=== PATIENT | male | born 1975 | race Caucasian/White ===

== ENCOUNTER 2017-03-15 16:27 | Observation (INO) | payer BC ==
[~2017-03-15] VITALS: Ht 172.7 cm; Wt 103.2 kg
--- NOTE | ~2017-03-15 | ER ---
PATIENT'S NAME: ALAINA ERWIN [facility] AGE: 41 Y [address] ROOM: [facility] [place], [place] [place], [place] [address] LOCATION: GPCU ADMIT DATE: 03/15/2017 ER/Outpatient Report DISCHARGE DATE: FAMILY PHYSICIAN: , NO ATTENDING PHYSICIAN: Deo Hartman Admission date and time documented in medical record. I saw the patient at 1640 hours. CHIEF COMPLAINT: Chest pain. HISTORY OF PRESENT ILLNESS: This patient is a 41-year-old male, who around noon today developed some right- sided anterior chest pain that was nonradiating. Throughout the day, it kind of moved to the mid chest then to the left anterior chest area and has pretty much stayed in the left anterior chest area. It again is not radiating to the shoulder, arm, back, neck, or jaw. It is stabbing in nature. It was about a 4 to 5/10 in severity. He had some shortness of breath and lightheadedness with this. No syncope. No fall or trauma. No headache, eyes, ears, nose, throat, neck, or spine pain. No recent coughs, colds, flus, fever, chills, or sweats. Denied any abdominal pain, nausea, vomiting. No diarrhea or urinary frequency, urgency, or dysuria. No joint or muscle swelling, redness, or pain. No skin eruptions or rash. No history of neuro changes, psych issues, endocrine problems. The patient does have a family history of heart disease and he does have hypertension. HOME MEDICATIONS: See attached medication sheet. ALLERGIES: NONE. SOCIAL HISTORY: Nonsmoker, nondrinker. SIGNIFICANT PAST MEDICAL HISTORY: Hypertension. FAMILY HISTORY: Heart disease. OPERATIONS: None. PATIENT'S NAME: ALAINA ERWIN [facility] AGE: 41 Y [address] ROOM: [address] [place] [id number] LOCATION: GPCU ADMIT DATE: 03/15/2017 ER/Outpatient Report DISCHARGE DATE: FAMILY PHYSICIAN: PHYSICIAN, NO ATTENDING PHYSICIAN: Deo Hartman REVIEW OF SYSTEMS: All systems reviewed by me are negative with the exception of those discussed in the history of present illness. PHYSICAL EXAMINATION: VITAL SIGNS: Temperature 98.8, Pulse 93, respirations 20, blood pressure 177/94, O2 saturation on room air is 98%. Pito coma scale was 15. HEAD: Normocephalic. EYES: Extraocular muscles intact. PERRL. EARS, NOSE, THROAT: Clear. Mucous membranes moist. Teeth, jaw intact. NECK: No nuchal rigidity. No thyromegaly or cervical adenopathy. No tenderness. SPINE: Nontender. No deformity. LUNGS: Clear. No rales, rhonchi, or wheezes. HEART: Regular. Pulses are palpable. No chest wall or ribcage pain to palpation. ABDOMEN: Soft, nondistended, nontender. Good bowel tones. No organomegaly or abnormal mass palpable. No CVA tenderness. No true guarding or rigidity. No rebound tenderness. EXTREMITIES: No peripheral edema. No cyanosis or deformity. NEURO: Cranial nerves intact. No lateralizing sign. Patient is awake, cooperative. Motor and sensory intact. VASCULAR: Intact. SKIN: Clear. No skin eruptions or rash. IMAGING DATA: Chest x-ray showed no acute infiltrate. We will review x-ray with the radiologist. EKG showed sinus rhythm. No acute ST elevation, ischemic change, or arrhythmia. LABORATORY DATA: White count 6600, 63 segs, 28 lymphs, 8 monos, 1 eo, 1 baso. Hemoglobin is 15.5, hematocrit 44.2, and platelet count is 170,000. PTT was 26. Pro-time is 10.5, and INR 1.0. CMS was normal. Magnesium was 2.2. CPK was 100. CK-MB and troponin were both normal. Awaiting to our EKG and cardiac enzyme results. Also awaiting D-dimer results. Did give the patient 4 baby aspirin orally in the emergency department as well as 2 mg of morphine IV for pain. IMPRESSION: 1. Chest pain, etiology uncertain. 2. History of hypertension. 3. Family history of heart. PLAN: Transferred the patient's care to Dr. Waller. Shift change. I asked Dr. Waller PATIENT'S NAME: ALAINA ERWIN [facility] AGE: 41 Y [address] ROOM: [place] [address] LOCATION: GPCU ADMIT DATE: 03/15/2017 ER/Outpatient Report DISCHARGE DATE: FAMILY PHYSICIAN: PHYSICIAN, NO ATTENDING PHYSICIAN: Deo Hartman to follow up with the second set of cardiac enzymes, second EKG, and D-dimer. Results; final diagnosis and treatment plan. MD GUILLERMO URIAS/modl /[id number] d: 03/16/17 0044 t: 03/26/17 1812, OUTPATIENT REPORT
--- NOTE | ~2017-03-15 | ER ---
PATIENT'S NAME: ALAINA ERWIN [facility] AGE: 41 Y [address] ROOM: [place] [address] LOCATION: GPCU ADMIT DATE: 03/15/2017 ER/Outpatient Report DISCHARGE DATE: FAMILY PHYSICIAN: PHYSICIAN, NO ATTENDING PHYSICIAN: Deo Hartman ADDENDUM: Time of Arrival: Initially 1630 hours. My evaluation at 1755 hours. This an addendum to Dr. Garza' dictation. Please see his previous dictation as well. CHIEF COMPLAINT: Chest pain. HISTORY OF PRESENT ILLNESS: The patient is seen and evaluated by myself at shift change at 1755 hours. He reports he was at work today about noon when he developed some right-sided chest pain, it moved over to his left, it is sharp in nature. He had some associated shortness of breath with this. He reports some lightheadedness and some dizziness. He reports some pain at my evaluation, 3/10 in severity. It is felt like he was going to pass out. He does report having history of similar symptoms about a year ago. He reports he has not been taking his blood pressure medications for several months. Denies any fevers or chills. Does have some nausea. No vomiting, no diarrhea or constipation. Does have an off and on cough. PAST MEDICAL HISTORY: Hypertension. PAST SURGICAL HISTORY: None. FAMILY HISTORY: Mother with heart attack at age 55. SOCIAL HISTORY: The patient works at [employer]. Denies any tobacco, alcohol, or illicit drug use. ALLERGIES: NO KNOWN DRUG ALLERGIES. MEDICATIONS: PATIENT'S NAME: ALAINA ERWIN [facility] AGE: 41 Y [address] ROOM: [address] [address] LOCATION: GPCU ADMIT DATE: 03/15/2017 ER/Outpatient Report DISCHARGE DATE: FAMILY PHYSICIAN: PHYSICIAN, NO ATTENDING PHYSICIAN: Deo Hartman Losartan, he has not taken that for many months. PRIMARY CARE DOCTOR: [facility]. REVIEW OF SYSTEMS: All systems are reviewed by myself and are negative with the exception of those discussed in HPI and past medical history. PHYSICAL EXAMINATION: VITAL SIGNS: Weight 104 kg, blood pressure 177/96, pulse 93, respiratory rate 20, temperature 98.8, oxygen saturation 98% on room air. GENERAL: The patient is a 41-year-old male who appears his stated age, in no acute distress. HEENT: Normocephalic, atraumatic. Pupils are equal, round, and reactive to light. NECK: Supple. There is no nuchal rigidity. CARDIOVASCULAR: Regular rate and rhythm. No murmurs, rubs, or gallops. LUNGS: Clear to auscultation bilaterally. No wheezes, rales, or rhonchi. ABDOMEN: Soft, nontender, and nondistended. No rebound, rigidity, or guarding. MUSCULOSKELETAL: The patient moves all 4 extremities. SKIN: Warm and dry. There is no pretibial edema noted. LABORATORY DATA AND X-RAYS: Labs and x-rays are reviewed. EKG was reviewed at 1805 hours by myself. It does shows sinus rhythm at a rate of 81, left-axis deviation, normal interval, no ST elevation, ST depression, T-wave inversions. D-dimer is normal. CBC is normal. Coags are normal. CMP is normal. LFTs are normal. Cardiac enzymes are normal. A 2-hour cardiac enzymes are normal as well. A repeat 2-hour cardiac EKG is interpreted by myself at 1846 hours, that shows sinus rhythm at a rate of 66, left-axis deviation, normal interval, no ST elevation, ST depression, T-wave inversions. IMPRESSION: 1. Hypertensive emergency. 2. Chest pain, rule out acute coronary syndrome. 3. Initial visit. EMERGENCY DEPARTMENT COURSE: The patient was brought back to the examination room. He is initially seen and evaluated by Dr. Garza, please see his dictation. Transfer of care is made to myself at shift change. I did see and evaluate the patient myself. The patient's 2-hour enzymes and EKG were normal; however, upon re-evaluation, the patient's blood pressure was 211/115. The patient developed active chest PATIENT'S NAME: ALAINA ERWIN Ernesto [facility] AGE: 41 Y [address] ROOM: [address] [place], [place] [address] LOCATION: GPCU ADMIT DATE: 03/15/2017 ER/Outpatient Report DISCHARGE DATE: FAMILY PHYSICIAN: PHYSICIAN, NO ATTENDING PHYSICIAN: Goldfish,Deo L pain at that time. He also became diaphoretic at that time. There are no significant changes on the 2-hour EKG. The patient was given 10 mg of labetalol IV. He is also given 1 nitroglycerin, this did result in significant improvement in the patient's pain and diaphoresis. With the changes in the patient's status, I have recommended observation for further evaluation, treatment, and management. I have contacted Dr. Hartman with the [facility]. He does agree to accept the patient for further evaluation, treatment, and management. I have discussed this with the patient and his fiancee who is at bedside. They are agreeable and without further questions. DISPOSITION: The patient is admitted under the care Dr. Hartman in stable condition. DO DAYNA FINNEY/modl /[id number] d: 03/16/170 t: 03/16/17 1931, OUTPATIENT REPORT
--- NOTE | ~2017-03-15 | ESTC ---
Cardiac Perfusion Imaging Demographics Patient Name YAIMA Orozco Gender Male Patient Number [id number] Race Visit Number [id number] Ethnicity Corporate ID Room Number G6333 Accession Number [id number] Height Date of 1975 Weight Age 41 year(s) BSA Referring Physician Miky Powell BMI Interpreting Marilyn Hernández Date of study 03/16/2017 Physician MD Supervising MD/MARGARITAP Miky Cabrera APRN NM Technologist Cynthia Faria Ordering Physician Stress r and d lab technician Stress ECG Reading Miky Cabrera APRN Nurse Johan Casillas Physician RN Propp Becky MCKENNAweatherstrip machine operator Procedure Type: Nuclear Stress Test:Exercise, Cardiolite Stress Test Procedure Start time: 03/16/2017 09:00 Indications: Chest pain and Dyspnea. Risk Factors The patient risk factors include:former tobacco use, hypertension and diabetes mellitus. Conclusions Summary Perfusion Images: The overall quality of the study is good. Left ventricular cavity is noted to be normal on the stress and normal on the rest images. There is no evidence of abnormal lung activity. The right ventricle is not visualized an cannot be assessed. Impression ECG portion of exercise stress test is clinically negative for ischemia by diagnostic criteria. Patient exercised for 10:30 through 4 stages of SAIRA protocol and achieved 11.8 METS. Myocardial perfusion imaging is normal. Overall left ventricular systolic function was normal without regional wall motion abnormalities. Calculated LVEF is 59% and TID ratio is 0.95. There are no previous studies for comparison. Stress Protocols Resting ECG Normal sinus rhythm. Pre-stress physical exam: Patient assessed by Elaine CROWDER prior to testing. Peak HR:155 bpm HR response: Appropriate Peak BP:210/90 mmHg BP response: Appropriate Predicted HR: 178 bpm HR/BP product:66374 % of predicted HR: 87 ECG Findings No ECG changes suggestive of ischemia. Arrhythmias No rhythm abnormality. Symptoms Shortness of breath. Headache. Complications Procedure complication: None. Stress Interpretation Patient walked for 10:30 through 4 stages of SAIRA protocol. Appropriate hemodynamic response to exercise. No significant ST-T wave changes with exercise. EKG portion is negative for ischemia by diagnostic criteria. The Zavala Treadmill score was 10.5 .This corresponds to a low risk stress test. Will correlate with nuclear images. Imaging Results Applied corrections - Motion correction applied High risk findings Summed scores - Summed stress score: 1 - Summed rest score: 2 - Summed difference score: -1 Stress ejection Ejection fraction:59 % EDV :136 ml ESV :56 ml Stroke volume :80 ml LV mass :167 gr Imaging Protocols Rest Stress Isotope:Tc99m Sestamibi IV Isotope: Tc99m Sestamibi IV Isotope dose:15.1 mCi Isotope dose:46 mCi Date:03/16/2017 08:47 Date:03/16/2017 10:25 Technique: SPECT Technique: Gated Supine SPECT Supine IV remains in place after procedure. Scan Time:45-60 minutes post Scan Time:45-60 minutes post injection injection Medical History Admission Data Admission date: 03/15/2017 Admission Time: 20:54 Hospital Status: Inpatient. Signatures dtt: LUIS MIN dtd: 03/16/17 0900 Physician Self Edit
--- NOTE | ~2017-03-15 | ECHO ---
Transthoracic Echocardiography Report (TTE) Demographics Patient Name ALAINA ERWIN Date of Study 03/16/2017 Patient Number [id number] Visit Number [id number] Date of 1975 Room Number G6333 Accession Number [id number] Gender Male Age 41 year(s) Referring Miky Powell Nitric Acid Plant Operator René Pinto RDCS, Physician RVT Physician Interpreting Marilyn Hernández Enrolled Agent Physician MD Supervising Ordering Physician Miky Powell APRN MD/MLP Nurse Stress Store Director Conclusions Contractility Score Summary Normal Left Ventricular contractility was noted. Summary Normal LV/RV size and systolic function.The estimated left ventricular ejection fraction is 60%. The left atrium is mildly dilated. No significant valvular abnormalities. There is mild pulmonary hypertension. The pulmonary pressure (RVSP) is 43.19 mmHg. Procedure Type of Study TTE procedure:2D Echocardiogram. Procedure Date Date: 03/16/2017 Start: 01:50 PM Study Location: Inpatient Portable Technical Quality: Adequate visualization Indications:Chest pain. Appropriate Use Criteria: 9 Patient Status: Routine HR: 70 bpm BP: 154/85 mmHg M-Mode/2D Measurements LV Diastolic Dimension: 5.32 cm LV Systolic Dimension: 3.39 cm LV Septum Diastolic: 0.72 cm LV PW Diastolic: 0.84 cm AO Root Dimension: 3.4 cm Cardiac Output: 6.49 l/min AV Cusp Separation: 2.4 cm RV Diastolic Dimension: 3.57 cm LA volume: 83 ml LVOT: 2.2 cm RV Base: 3.1 cm LVOT VTI: 24.4 cm RV Mid: 2.23 cm LV Stroke volume: 92.71 ml Doppler Measurements AV Peak Velocity: 1.62 m/s MV Peak E-Wave: 0.94 m/s AV Peak Gradient: 10.5 mmHg MV Peak A-Wave: 0.69 m/s AV Mean Gradient: 7 mmHg MV E/A Ratio: 1.36 LVOT Peak Velocity: 1.51 m/s MV P1/2t: 50 msec TR Gradient:38.19 mmHg PV Peak Velocity: 1.32 m/s Estimated RAP:5 mmHg PV Peak Gradient: 6.97 mmHg Estimated RVSP: 43 mmHg Estimated PASP: 43.19 mmHg E' Septal Velocity: 0.08 m/s A' Septal Velocity: 0.11 m/s E' Lateral Velocity: 0.16 m/s A' Lateral Velocity: 0.11 m/s Findings Left Ventricle Normal left ventricle size and function. Diastolic assessment reveals normal relaxation. Right Ventricle Normal right ventricle structure and function. Left Atrium The left atrium is mildly dilated. Right Atrium The right atrium is normal in size. IVC measures 1.84 cm with inspiratory collapse. Mitral Valve Normal mitral valve structure and function. Aortic Valve Normal aortic valve structure and function. Tricuspid Valve Mild tricuspid regurgitation by color Doppler. There is mild pulmonary hypertension. The pulmonary pressure (RVSP) is 43.19 mmHg. Pulmonic Valve Trivial pulmonic valve regurgitation by color Doppler. Pericardial Effusion No evidence of pericardial effusion. Miscellaneous Visualized portions of the aortic root and ascending aorta appear normal in size. Pleural Effusion No evidence of pleural effusion. Contractility Score LV regional wall motion:(0-Non visualized 1-Normal 2-Hypokinesis 3-Akinesis 4-Dyskinesis 5-Aneurysm) Signature dtt: LUIS MIN dtd: 03/16/17 1910 Physician Self Edit
--- NOTE | ~2017-03-15 | CON ---
PATIENT'S NAME: ALAINA ERWIN [facility] AGE: 41 Y [address] ROOM: [place] [address] LOCATION: GPCU ADMIT DATE: 03/15/2017 Consultation DISCHARGE DATE: 03/16/2017 FAMILY PHYSICIAN: PHYSICIAN, NO ATTENDING PHYSICIAN: Deo Hartman DATE OF CONSULTATION: 03/16/2017 REFERRING PHYSICIAN: Tere Soto MD CARDIOLOGY CONSULTATION REASON FOR CARDIOLOGY CONSULTATION: Chest pain and hypertension. HISTORY OF PRESENT ILLNESS: This is a 41-year-old male with a history of medication noncompliance for hypertension. He developed chest pain, shortness of breath, and presyncope while at work yesterday. He states the pain started on the right side of his chest and moved to the left upper chest as well as to his upper arm. He describes the pain as sharp. He denies any nausea, vomiting, or palpitations. At the time of this consult, he is currently pain free. When asked about relieving factors of his chest pain, he is unaware of any and states he awoke sometime over the evening without pain. PAST MEDICAL HISTORY: 1. Hypertension, poorly controlled. 2. History of migraines. 3. History of kidney stones. 4. GERD. PAST SURGICAL HISTORY: No noted surgical history. FAMILY HISTORY: The patient's mother was a diabetic and had 2 separate myocardial infarctions. He is unaware of any medical history from his father. There is noted heart disease and diabetes on his mother side of the family. SOCIAL HISTORY: The patient is a former cigarette smoker. He states he only smoked for 1 year. He denies alcohol or illicit drug use. CURRENT MEDICATIONS: 1. Nitroglycerin IV as needed for chest pain. 2. Labetalol IV for hypertension. PATIENT'S NAME: ALAINA ERWIN [facility] AGE: 41 Y [address] ROOM: [place] [address] LOCATION: GPCU ADMIT DATE: 03/15/2017 Consultation DISCHARGE DATE: 03/16/2017 FAMILY PHYSICIAN: PHYSICIAN, NO ATTENDING PHYSICIAN: Deo Hartman MEDICATION ALLERGIES: No known medication allergies. REVIEW OF SYSTEMS: Pertinent positive review of systems listed in the HPI. All other review of systems evaluated and negative. LABORATORY DATA AND IMAGING STUDIES: Diagnostics: CMS evaluation shows a sodium of 139, potassium 4.0, BUN of 14, creatinine 1.0, glucose of 91, and a magnesium of 2.2. He has a D-dimer level of 0.19. CBC evaluation shows a white blood cell count of 6.6, hemoglobin of 15.5, hematocrit 44.2, and platelets of 170,000. Cardiac enzyme trend shows a CPK of 100, then 90, then 76, then 69; CK-MB of 0.8, then 0.7, then less than 0.5, and finally 0.7. He has also has troponin I of less than 0.04 x4 values. PHYSICAL EXAMINATION: VITAL SIGNS: Temperature 98.4, pulse 71, respirations 16, blood pressure 137/81, and O2 saturation 95% on room air. The patient weighs 103.2 kg. SKIN: Cornelius, warm, and dry. EYES: Clear. No xanthelasmas. ENT: Oral mucosa is pink and moist. No jugular venous distention or carotid bruits. CHEST: Respirations are even and unlabored. LUNGS: Clear to auscultation. HEART: Regular rate and rhythm. Normal S1 and S2. No murmurs, rubs, or gallops. ABDOMEN: Soft and nontender. MUSCULOSKELETAL: Gait is normal. EXTREMITIES: Peripheral pulses palpable. No clubbing, cyanosis, or edema. PSYCHIATRIC: Alert and oriented. Mood and affect are appropriate. IMPRESSION AND PLAN: Per Dr. Betty Sanders: 1. Chest pain. 2. Shortness of breath. 3. Uncontrolled hypertension. 4. History of medication noncompliance. The patient has underwent cardiac stress testing which showed normal myocardial perfusion imaging. He had a calculated left ventricular ejection fraction of 59%. The patient's pain is most likely from his uncontrolled hypertension. We will start him on Cozaar 50 mg p.o. daily. We will also evaluate an echocardiogram to fully evaluate his ejection fraction as well as look wall motion or valvar abnormalities. Once again, we recommend aggressive management of his blood pressure with close followup as an outpatient. PATIENT'S NAME: ALAINA ERWIN [facility] AGE: 41 Y [address] ROOM: [address] [address] LOCATION: GPCU ADMIT DATE: 03/15/2017 Consultation DISCHARGE DATE: 03/16/2017 FAMILY PHYSICIAN: , NAVA ATTENDING PHYSICIAN: Deo Hartman Thank you Dr. Hartman for this consult. Thank you for allowing [facility] to interact in the care of this patient. VLAD FRANKEL APRN FOR MD ANNIA BARAJAS/daina /[id number] d: 03/16/17 1924 t: 03/18/17 0940, CONSULTATION REPORT
--- NOTE | ~2017-03-15 | HP ---
PATIENT'S NAME: ALAINA ERWIN [facility] AGE: 41 Y [address] ROOM: [place] [address] LOCATION: GPCU ADMIT DATE: 03/15/2017 History & Physical DISCHARGE DATE: FAMILY PHYSICIAN: PHYSICIAN, NO ATTENDING PHYSICIAN: Deo Hartman DATE OF SERVICE: CHIEF COMPLAINT: Chest pain. HISTORY OF PRESENT ILLNESS: The patient is a 41-year-old male with known history of hypertension, who presented with chest pain to the Emergency Room today. The patient was given nitroglycerin and Lopressor and was found to still have an elevated blood pressure in the 200s. The patient continues to have chest pain and was admitted. The patient denies any shortness of breath, fevers, chills, nausea, vomiting, abdominal pain, or headaches. PAST MEDICAL HISTORY: Hypertension. PAST SURGICAL HISTORY: None. ALLERGIES: NO KNOWN MEDICAL ALLERGIES. CURRENT MEDICATIONS: The patient was prescribed losartan, but has not taken in months. FAMILY HISTORY: Significant for mother with history of cardiovascular disease and ID. SOCIAL HISTORY: The patient smoked only for about a year and quit in 2008. Denies any illicit drug use. REVIEW OF SYSTEMS: A complete review of systems is obtained, pertinent positives and negatives as mentioned in the HPI. OBJECTIVE: VITAL SIGNS: Temperature 98.8, pulse 93, respirations 20, blood pressure 177/96. PATIENT'S NAME: ALAINA ERWIN [facility] AGE: 41 Y [address] ROOM: [place] [address] LOCATION: GPCU ADMIT DATE: 03/15/2017 History & Physical DISCHARGE DATE: FAMILY PHYSICIAN: PHYSICIAN, NO ATTENDING PHYSICIAN: Deo Hartman GENERAL: The patient is alert and oriented. Appears in no acute distress. HEENT: Head: Normocephalic, atraumatic. Eyes: Conjunctivae clear. No scleral icterus. Mouth: Oropharynx grossly moist and pink. No lesions or exudates. NECK: Supple. No lymphadenopathy. NEUROLOGIC: Cranial nerves 2 through 12 grossly intact. HEART: Regular rate rhythm. No rubs, murmurs, or gallops. LUNGS: Clear to auscultation bilaterally. ABDOMEN: Bowel sounds present. Nontender. EXTREMITIES: No cyanosis, clubbing, or edema. LYMPHATICS: No lymphadenopathy. LABORATORY DATA: CBC, CMP, and cardiac enzymes were within normal limits. Chest x-ray was normal. ASSESSMENT: 1. Chest pain. 2. Hypertensive emergency. 3. Obesity. PLAN: At this time, we will admit to [facility] and have Cardiology followup. We will place him on nitroglycerin drip to control his blood pressure and also his chest pain. We will make him n.p.o. after midnight and have him stress test tomorrow. We will trend out his enzymes and also discuss starting blood pressure medications in the morning. MD SPIKE VITALE/daina /[id number] D: [id number] T: [id number] HISTORY & PHYSICAL
[2017-03-15 16:51] LABS: BASOPHIL % 0.6 %; EOSINOPHIL # 0.1 K/uL (0.0-0.5); EOSINOPHIL % 0.8 %; HEMATOCRIT 44.2 % (37.0-53.0); HEMOGLOBIN 15.5 g/dL (12.0-17.0); IMMATURE GRANULOCYTE # 0.1 K/uL (0.0-0.3); IMMATURE GRANULOCYTE % 0.9 %; LYMPHOCYTE # 1.8 K/uL (0.8-4.0); LYMPHOCYTE % 27.5 %; MCH 29.8 pg (27.0-34.0); MCHC 35.1 gm/dL (32.0-36.5); MONOCYTE # 0.5 K/uL (0.0-1.0); MONOCYTE % 7.6 %; MPV 11.2 fl (9.4-12.4); NEUTROPHIL # (ANC) 4.2 K/uL (1.4-9.0); NEUTROPHIL % 62.6 %; NRBC % 0 /100WBC (0-0.00); PLATELET COUNT 170 K/uL (150-450); RDW-CV 12.7 % (11.9-14.6); WBC 6.6 K/uL (4.0-11.0)
[2017-03-15 17:01] LABS: PROTIME 10.5 SECONDS (9.8-11.4); PTT 26 SECONDS (25-32)
[2017-03-15 17:11] LABS: ALBUMIN 3.9 gm/dL (3.5-5.0); ALK PHOS 72 IU/L (33-138); ALT 48 IU/L (12-78); AST 28 IU/L (10-40); BLOOD UREA NITROGEN 14 mg/dL (6-24); CALCIUM 8.7 mg/dL (8.5-10.5); CHLORIDE 106 mMol/L (96-110); CO2 22 mMol/L (22-32); CPK 100 IU/L (35-332); ESTIMATED GFR (MDRD EQUATION) > 60; MAGNESIUM 2.2 mg/dL (1.8-2.6); SODIUM 139 mMol/L (135-145); TOTAL BILIRUBIN 0.6 mg/dL (0.0-1.5); TOTAL PROTEIN 7.4 g/dL (6.0-8.4)
[2017-03-15 19:01] LABS: CPK 90 IU/L (35-332)
[2017-03-15] MEDS ORDERED: COZAAR100 MG PO (22:15)
--- NOTE | 2017-03-15 23:02 | NUR ---
Patient has had increase dizziness then chest pain and SOB started at 11am. Came into the ER after work. Cardio work up so far everything negative. BP on arrival 200's, syptomatic nausea, sweats, SOB. Recieved labetalol IV and SL nirto, morhpine, and ASA. Patient Hx HTN, heartburn, nocturia, kidney stones. Family HX of heart disease. No allergies. On arrival to floor VSS BP 155/87. Patient still slightly dizzy and fatigued. No other complains. IV to Rt wrist saline locked. Lungs clear. Bowel sounds present last BM 03/15/17. Patient hasn't been taking his losartan for months. Dr. Hartman here to see patient.
[2017-03-16 01:26] LABS: CPK 76 IU/L (35-332)
--- NOTE | 2017-03-16 04:57 | NUR ---
Patient A/Ox3. VSS on RA. No complaints of pain. Lungs clear. Bowel sounds present. Up standby assist. NPO for possible stress test this am.
[2017-03-16 06:49] LABS: CPK 69 IU/L (35-332)
--- NOTE | 2017-03-16 12:00 | NUR ---
I spoke with nursing and md and they deny any post discharge needs.
[2017-03-16] MEDS ORDERED: HYDRODIURIL25 MG PO (13:46)
--- NOTE | 2017-03-16 15:07 | NUR ---
1500 PT DISMISSED TO HOME WITH TO DRIVE. AT TIME OF DC PT IS A/O PINK WARM AND DRY. STEADY ON FEET WHEN UP, IV DC'D WITH CATH INTACT. LUNGS ARE CLEAR ABDOMEN IS SOFT AND NONTENDER WITH PRESENT BOWEL SOUNDS, PULSES ARE STRONG HE HAS NO EDEMA. STRESS TEST THIS AM, ECHO THIS PM, THEN DC'D. MEDICATIONS, PRESCRIPTIONS, FOLLOW UP CARE AND APPOINTMENTS ALL WENT OVER WITH PT AND , BOTH VERBALIZE UNDERSTANDING. W/C TO [facility] [place] [employer] [facility] FOR DC TO HOME.
== END 2017-03-16 15:00 | disposition disaster alternative care site (69) ==
LOC: GMED 16:27 → GPCU 20:54
PROVIDERS: Emergency Medicine; ADMIT Family Medicine
DX: R07.9 Chest pain, unspecified (principal); I10 Essential (primary) hypertension; R06.02 Shortness of breath; G43.909 Migraine, unspecified, not intractable, without status migrainosus; K21.9 Gastro-esophageal reflux disease without esophagitis; E66.9 Obesity, unspecified; Z87.442 Personal history of urinary calculi; Z87.891 Personal history of nicotine dependence
CPT/HCPCS: A9500; G0378; J2270

== ENCOUNTER 2017-05-12 18:39 | Day surgery (SDC) | payer BC ==
[~2017-05-12] VITALS: Ht 172.7 cm; Wt 102.1 kg
--- NOTE | ~2017-05-12 | DS ---
PATIENT'S NAME: ALAINA ERWIN [facility] AGE: 41 Y [address] ROOM: [address] [address] LOCATION: [facility] [place] ADMIT DATE: 05/12/2017 Discharge Summary DISCHARGE DATE: 05/13/2017 FAMILY PHYSICIAN: Deo Hartman MD ATTENDING PHYSICIAN: Albert Regan ADMISSION DIAGNOSIS: Acute appendicitis. DISCHARGE DIAGNOSIS: Acute appendicitis, resolved, status post appendectomy. HOSPITAL COURSE: The patient was seen in the clinic yesterday and sent for abdominal CT that indicated acute appendicitis. The patient was seen by Dr. Regan and it was determined to proceed with laparoscopic appendectomy. See operative note for further details. The patient recovered well. The patient is tolerating oral intake. The patient is up and ambulating with minimal-to- moderate pain at incision sites. Pain that brought the patient to the hospital has resolved at this point. The patient's vitals have been stable since admission. The patient is ready for discharge. DISCHARGE PHYSICAL EXAMINATION: VITAL SIGNS: Blood pressure 127/67, pulse 64, respirations 16, temperature 97.6. GENERAL: No acute distress, alert, oriented. PULMONARY: Clear to auscultation. CARDIAC: Regular rate and rhythm. ABDOMEN: Three incisions covered with gauze and sterile tape, with minimal evidence of bleeding. No surrounding erythema, no discharge from wounds. Bowel sounds positive x4 quadrants, mild tenderness in the suprapubic area around the lower incision site. EXTREMITIES: Peripheral pulses x4. NEURO: No focal deficits. DISPOSITION: Home, status post laparoscopic appendectomy for acute appendicitis, postop day 1. TACO DOWLING MD RESIDENT FOR ALBERT REGAN MD MR/modl /[id number] d: 05/14/17 0224 t: 05/16/17 1542, DISCHARGE SUMMARY
--- NOTE | ~2017-05-12 | HP ---
PATIENT'S NAME: ALAINA ERWIN [facility] AGE: 41 Y [address] ROOM: [address] [address] LOCATION: [facility] [place] ADMIT DATE: 05/12/2017 History & Physical DISCHARGE DATE: FAMILY PHYSICIAN: Deo Hartman MD ATTENDING PHYSICIAN: Albert Regan DATE OF SERVICE: CHIEF COMPLAINT: Abdominal pain. HISTORY OF PRESENT ILLNESS: The patient is a 41-year-old male, who states his abdominal pain started yesterday (05/11/17) during the morning hours and he continued to work. He was able to sleep at night; however, the pain was worsening and did wake him on occasion and then continued through the day. The patient complains of nausea and vomiting overnight, but none today. The patient denies any fever or chills. No vomiting today and no change in bowel pattern or caliber. The patient denies any previous abdominal surgeries. Pain is located in the right lower quadrant and does not radiate up or down his body. The patient described it as deep ache sharp pain. Patient describes a somewhat normal appetite, but feels nauseated anytime he eats. PAST MEDICAL HISTORY: Hypertension, GERD, renal stones. FAMILY HISTORY: Mother:P diabetes, hypertension, and DE. Maternal grandmother at age 52 from an DE. ALLERGIES: NONE. MEDICATIONS: Losartan Hydrochlorothiazide. REVIEW OF SYSTEMS: Positive for hypertension and abdominal complaints (see HPI). All other 10 point review of systems asked and negative. PHYSICAL EXAMINATION: VITAL SIGNS: Blood pressure 156/84, pulse of 83, respirations of 22, normal temperature. GENERAL: No apparent distress. Alert and oriented. CARDIAC: Regular rate and rhythm. PULMONARY: Clear to auscultation. PATIENT'S NAME: ALAINA ERWIN [facility] AGE: 41 Y [address] ROOM: [address] [address] LOCATION: [facility] [place] ADMIT DATE: 05/12/2017 History & Physical DISCHARGE DATE: FAMILY PHYSICIAN: Deo Hartman MD ATTENDING PHYSICIAN: Albert Regan ABDOMEN: Tenderness in the right lower quadrant. Positive McBurney's. Positive guarding of RLQ. Positive psoas. Positive tenderness with percussion. Negative Rovsing's. Negative rebound and . Bowel sounds positive; however, very faint. EXTREMITIES: Peripheral pulses present x4. NEURO: No focal deficits. ASSESSMENT AND PLAN: A 41-year-old with acute appendicitis by CT and clinical exam. 1. Appendicitis. We will plan for appendectomy with an overnight stay for observation. 2. Hypertension. Continue home medications. TACO DOWLING MD RESIDENT FOR ALBERT REGAN MD MR/modl /[id number] D: [id number] T: [id number] HISTORY & PHYSICAL
--- NOTE | ~2017-05-12 | OR ---
PATIENT'S NAME: ALAINA ERWIN [facility] AGE: 41 Y [address] ROOM: [address] [address] LOCATION: [facility] [place] ADMIT DATE: 05/12/2017 OR/Procedure Report DISCHARGE DATE: FAMILY PHYSICIAN: Deo Hratman MD ATTENDING PHYSICIAN: Albert Regan SURGEON: Albert Regan MD CARDIOLOGY PHYSICIAN: Casi Thompson, Manager Hvac 3. DATE OF PROCEDURE: 05/12/2017 PREOPERATIVE DIAGNOSIS: Acute appendicitis. POSTOPERATIVE DIAGNOSIS: Acute appendicitis. PROCEDURE: Laparoscopic appendectomy. ANESTHESIA: General with 20 mL 0.5% Marcaine. ESTIMATED BLOOD LOSS: 25 mL. SPECIMEN: Appendix with acute inflammatory changes. INDICATION: The patient is a 41-year-old gentleman with about 24 to 48 hour history of abdominal pain, which is settled in the right lower quadrant. He has no fevers or chills. He has had normal bowel function. No dysuria. He has had a normal white count. However, CT though was performed due to localized peritoneal findings in the right-side of the abdomen and it showed inflamed appendix and no evidence of rupture. DESCRIPTION OF PROCEDURE: After informed consent, the patient was taken to the operating room and after general endotracheal anesthesia, the patient's abdomen was prepped and draped into a sterile field. Time-out performed. We then addressed the patient the planned procedure and administration of preop antibiotics. We injected local anesthetic prior to first incision at the umbilicus. We placed a Veress needle into the peritoneal cavity, did a saline test, and then created pneumoperitoneum. A 5-mm trocar and laparoscope were inserted. Safe entry was noted. Right upper quadrant 5-mm and suprapubic 12- mm port were placed. The appendix tip was next to the cecum, but the body was inverted down, and was stuck down to the retroperitoneum. We folded back the terminal ilium and then bluntly started freeing up the inflammatory adhesions. We created a window in the mesoappendix and divided with Endo-EMILY stapler. There was arterial bleeding. We grabbed it with a dissector and cauterized it. Hemostasis was noted. We irrigated it and there was no evidence of additional blood loss. We then elevated up the appendix at the base and divided it with Endo-EMILY stapler x2. We then put the appendix in EndoCatch bag and brought it out it through the 12-mm fascia defect. We then irrigated PATIENT'S NAME: ALAINA ERWIN [facility] AGE: 41 Y [address] ROOM: [address] [address] LOCATION: [facility] [place] ADMIT DATE: 05/12/2017 OR/Procedure Report DISCHARGE DATE: FAMILY PHYSICIAN: Deo Hartman MD ATTENDING PHYSICIAN: Albert Regan the right lower quadrant, inspected the staple line as well as the mesoappendix, and no evidence of bleeding. The trocars were removed. Pneumoperitoneum released. The 12-mm fascia defect was closed with 2 interrupted 0 Vicryl sutures. The skin was closed with subcuticular 4-0 Vicryl. Steri-Strips, sterile dressings applied. The patient tolerated the procedure well and transferred to recovery in stable condition. ALBERT REGAN MD WTS/modl /[id number] d: 05/13/17 0130 t: 05/16/17 1540, OPERATIVE SUMMARY
[~2017-05-12 18:39] MED LIST: COZAAR100 MG PO; HYDRODIURIL25 MG PO
[2017-05-12] MEDS ORDERED: SINGULAIR10 MG PO (19:34)
[2017-05-12] MEDS ORDERED: TRICOR 160 MG160 MG PO (19:34)
[2017-05-12] MEDS ORDERED: FLONASE 50 MCG/16 GM NOSE (19:35)
--- NOTE | 2017-05-13 04:53 | NUR ---
41 year old pt. admitted to floor from surgery at 0 for lap appy. No past medical history. 3 lap sites with 1 site bloody. VSS. RA. IV to L) hand with fluids at 100. Pain pills given x2 - last one at 0100. Been giving 1 tab only to see if tolerates well. Zofran x1 given at 0100 as well. Slept well. Voiding well. Has been up to bathroom with SBA. No flatus and rare BS present. Cooperative and plesant with cares.
[2017-05-13] MEDS ORDERED: NORCO 5-325 TA1 EACH PO (09:07)
--- NOTE | 2017-05-13 14:25 | NUR ---
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
--- NOTE | 2017-05-13 16:37 | NUR ---
discharge: Pt. was explained discharge instructions, educated on lap appy instructions and new medication: norco. Verbalized understanding, no questions or concerns. Left with all belongings and prescriptions. IV removed by primary nurse. Taken to front door by aide and driven home by .
== END 2017-05-13 14:25 | disposition disaster alternative care site (69) ==
LOC: GMSU 18:39 → GSDC 18:39 → GMSU 18:40 → GSDC 05-13 14:25
PROC: 0DTJ4ZZ Resection of Appendix, Percutaneous Endoscopic Approach (ICD-10-PCS; principal; 2017-05-13)
DX: K35.80 Unspecified acute appendicitis (principal); I10 Essential (primary) hypertension; K21.9 Gastro-esophageal reflux disease without esophagitis; Z79.899 Other long term (current) drug therapy
CPT/HCPCS: J0690; J1100; J1335; J2405; J7120; Q9967

== ENCOUNTER 2017-07-11 18:20 | Emergency (ER) | payer BC ==
--- NOTE | ~2017-07-11 | ER ---
PATIENT'S NAME: ALAINA ERWIN [facility] AGE: 42 Y [address] ROOM: [place] [address] LOCATION: ED ADMIT DATE: 07/11/2017 ER/Outpatient Report DISCHARGE DATE: 07/11/2017 FAMILY PHYSICIAN: Deo Hartman MD ATTENDING PHYSICIAN: Gibran Garza TIME OF ARRIVAL: 1823 hours. TIME OF EXAM: 1829 hours. CHIEF COMPLAINT: Abdominal pain. HISTORY OF PRESENT ILLNESS: The patient states since about 6 o'clock this morning he has had midepigastric abdominal pain. It has been a constant dull ache. He has been nauseated and no vomiting. He did eat at 1 o'clock, had a hamburger, pain did not change. He has not had any bowel or bladder changes. Denies having any chest pain. He has not felt diaphoretic. ALLERGIES: HE HAS NO KNOWN ALLERGIES. CURRENT MEDICATIONS: Current medications are on his chart and reviewed by me. PAST MEDICAL HISTORY: Hypertension, allergies, and elevated cholesterol. PAST SURGERIES: Having had an appendectomy 2 months ago. SOCIAL HISTORY: Denies use of tobacco, drugs, or alcohol. REVIEW OF SYSTEMS: Negative other than those mentioned in the HPI. PHYSICAL EXAMINATION: VITAL SIGNS: He weighed 106.4 kg. Blood pressure is 137/91, pulse is 78, respirations 20, temp of 98.6, tympanic, and O2 sat was 97% on room air. GENERAL: He is awake, alert, and oriented x4. SKIN: Toast, warm, and dry. PATIENT'S NAME: ALAINA ERWIN [facility] AGE: 42 Y [address] ROOM: [place] [address] LOCATION: [facility] ADMIT DATE: 07/11/2017 ER/Outpatient Report DISCHARGE DATE: 07/11/2017 FAMILY PHYSICIAN: Deo Hartman MD ATTENDING PHYSICIAN: Gibran Garza RESPIRATIONS: Even and nonlabored. LUNGS: Lung sounds were clear throughout. HEART: Regular rate and rhythm. ABDOMEN: Soft and nondistended. Bowel sounds are present. He is tender in the left upper and right upper quadrant and tender in the midepigastric area. EMERGENCY DEPARTMENT COURSE: The patient was given Zofran 4 mg ODT. Lab was drawn. CBC is within normal limits. Chem panel is within normal limits. Amylase was 55 with a lipase of 190. H. pylori comes back positive. IMPRESSION: Positive H. pylori. PLAN: Home, rest, fluids. Prescriptions were written for amoxicillin, clarithromycin, and omeprazole. Discussed dietary recommendations with him. If his symptoms do not improve in the next 2 to 3 days, he is to follow up with his primary provider. He verbalized understanding. STEVE SALTER APRN FOR MD ZAHRA URIAS/daina /[id number] d: 07/12/173 t: 07/13/17 1600, OUTPATIENT REPORT
[~2017-07-11 18:20] MED LIST changes: +FLONASE 50 MCG/16 GM NOSE; +NORCO 5-325 TA1 EACH PO; +SINGULAIR10 MG PO; +TRICOR 160 MG160 MG PO
[2017-07-11 18:57] LABS: BASOPHIL % 0.3 %; EOSINOPHIL # 0.1 K/uL (0.0-0.5); EOSINOPHIL % 0.9 %; HEMOGLOBIN 15.8 g/dL (12.0-17.0); IMMATURE GRANULOCYTE # 0.1 K/uL (0.0-0.3); IMMATURE GRANULOCYTE % 0.8 %; LYMPHOCYTE # 1.7 K/uL (0.8-4.0); LYMPHOCYTE % 26.7 %; MCH 31.3 pg (27.0-34.0); MCHC 35.9 gm/dL (32.0-36.5); MCV 87.1 fl (83.0-98.0); MONOCYTE # 0.4 K/uL (0.0-1.0); MONOCYTE % 6.6 %; MPV 10.4 fl (9.4-12.4); NEUTROPHIL # (ANC) 4.1 K/uL (1.4-9.0); NEUTROPHIL % 64.7 %; NRBC % 0 /100WBC (0-0.00); PLATELET COUNT 182 K/uL (150-450); RBC 5.05 M/uL (4.00-6.00); RDW-CV 12.4 % (11.9-14.6); WBC 6.3 K/uL (4.0-11.0)
[2017-07-11 19:15] LABS: ALBUMIN 3.9 gm/dL (3.5-5.0); ANION GAP 10.9 (10.0-19.0); CALCIUM 8.8 mg/dL (8.5-10.5); CREATININE 1.2 mg/dL (0.6-1.3); POTASSIUM 3.9 mMol/L (3.7-5.1); TOTAL BILIRUBIN 0.5 mg/dL (0.0-1.5); TOTAL PROTEIN 7.6 g/dL (6.0-8.4)
== END 2017-07-11 19:32 | disposition disaster alternative care site (69) ==
LOC: GMED 18:20
PROVIDERS: Emergency Medicine
DX: B96.81 Helicobacter pylori [H. pylori] as the cause of diseases classified elsewhere (principal); I10 Essential (primary) hypertension; E78.00 Pure hypercholesterolemia, unspecified; Z98.890 Other specified postprocedural states; Z79.899 Other long term (current) drug therapy